=== PATIENT | male | born 1950 | race Caucasian/White ===

== ENCOUNTER 2018-04-05 23:27 | Emergency (ER) | payer OTHER, MEDICARE ==
[~2018-04-05] VITALS: Ht 185.4 cm; Wt 95.3 kg
[2018-04-05 23:35] VITALS: BP 181/108
[2018-04-05] MEDS ORDERED: LIDOCAINE 2% VIAL SQ STA (23:45)
[2018-04-05] MEDS ORDERED: LIDOCAINE 1% VIAL ONE (23:50)
--- NOTE | 2018-04-05 23:51 | ER.PDOC ---
General Chief Complaint: Requesting Medical Care Stated Complaint: HAND INJURY/ L THUMB Time seen by MD: 23:55 Source: patient Exam Limitations: no limitations History of Present Illness Occurred: just prior to arrival Where: home Severity: mild Context: laceration Location of Injury: (L) fingers Modifying Factors: pain on movement Past Medical History Medical History: no pertinent history Family History Significant Family History: no pertinent family hx Social History Alcohol Use: none Reviewed Nursing Reviewed: Vital Signs, Abn. Noted Review of Systems All Other Systems: Reviewed and Negative Physical Exam General Appearance: Alert, No Apparent Distress Hand: no evidence FB, tenderness Wrist: nml inspection, non-tender, nml ROM 1 - 2 CM LAC Neuro: sensation nml, motor nml Vascular: no vascular compromise Tendons: tendon function nml Forearm/Elbow/Arm: uninjured above wrist Skin: warm/dry Head/ENT: nml inspection, pharynx nml Neck/Back: nml inspection, non-tender Resp/CVS: no resp distress, lungs clear, heart sounds nml, reg. rate & rhythm Abdomen: non-tender, no organomegaly ED LACERATION WOUND REPAIR # of Wounds/Lacerations Presen: 1 Wound Length (cm): 2 Wound cleaned: betadine Distal NVT: neuro intact, vasc intact Anesthesia type: digital block Anesthesia: 1% Lidocaine Wound's Depth, Shape: superficial, linear Wound Explored: clean Wound Repaired With: sutures Suture Size/Type: 5:0, nylon Suture Style: simple Layer Closure?: No Departure Time of Disposition: 00:30 Disposition: 01 HOME, SELF-CARE Impression: Primary Impression: Thumb laceration Condition: Improved Referrals: AMIE CHILDRESS MD (PCP) PRIMARY CARE PROVIDER Duration or Time Spent with Pa: 1 HR REMIGIO RODRIGUEZ MD Apr 05, 2018 23:51
[2018-04-05] MEDS ORDERED: TRIPLE ANTIBIOTIC OINTMENT TP ONE (23:57)
[2018-04-06 00:30] VITALS: BP 180/94
--- NOTE | 2018-04-06 00:40 | NUR ---
DRESSING WOUND CLEANSED AND NEOSPORIN, GAUZE, AND COBAN PRESSURE DRESSING APPLIED. EDUCATION PROVIDED. PT TOLERATED WELL.
[2018-04-06] MEDS ORDERED: HUMULIN R ONE (01:28)
[2018-04-06] MEDS ORDERED: NS 1000ML 1,000 ML ONE (01:30)
[2018-04-06 03:12] VITALS: BP 180/94
[2018-04-06] MEDS ORDERED: APIX5TAB PO (03:12)
[2018-04-06] MEDS ORDERED: ATOR10TA PO (03:12)
[2018-04-06] MEDS ORDERED: METO50TA6 PO (03:12)
[2018-04-06] MEDS ORDERED: AMLO10TA6 PO (03:12)
[2018-04-06] MEDS ORDERED: PRED20TA PO (03:12)
[2018-04-06] MEDS ORDERED: PANT40TA5 PO (03:12)
== END 2018-04-06 00:50 | disposition home or self-care (01) ==
LOC: ER 23:27
DX: S61.012A Laceration without foreign body of left thumb without damage to nail, initial encounter (principal); W22.8XXA Striking against or struck by other objects, initial encounter; Y93.89 Activity, other specified; Y92.098 Other place in other non-institutional residence as the place of occurrence of the external cause; Y99.8 Other external cause status
CPT/HCPCS: 99283; J1815; J2001; J7030; 12001